=== PATIENT | female | born 1945 | race Caucasian/White ===

== ENCOUNTER 2018-05-11 06:51 | Day surgery (SDC) | payer MEDICARE, OTHER ==
[2018-05-11] MEDS ORDERED: Cyanocobalamin (Vitamin B12) 1,000 MCG/ML SDV IM ONE (07:45)
[2018-05-11] MEDS ORDERED: Glycopyrrolate 0.2 MG/ML 2 ML SDV IVPUSH ONE (07:45)
[2018-05-11] MEDS ORDERED: Lactated Ringers 1,000 ML IV SCH (07:45)
[2018-05-11] MEDS ORDERED: fentaNYL 100 MCG/2 ML SDV ONE (07:52)
[2018-05-11] MEDS ORDERED: Propofol 200 MG/20 ML SDV ONE (07:52)
[2018-05-11] MEDS ORDERED: MVI, Adult with Vitamin K 10 ML, Thiamine 200 MG, Chromium/Copper/Mang/Selen/Zn 1 ML in... IV ONE ×4 (08:45)
--- NOTE | 2018-05-12 11:31 | OR ---
DATE OF PROCEDURE: 05/11/2018 PREOPERATIVE DIAGNOSIS: History of recent reperforated marginal ulcer. POSTOPERATIVE DIAGNOSIS: Healed marginal ulcer. OPERATIVE PROCEDURE: Upper gastrointestinal endoscopy with biopsy of gastric pouch for CLOtest. ANESTHESIA: IV sedation. INDICATION FOR PROCEDURE: This is a 72-year-old status post Violetta-en-Y gastric bypass. She sustained a perforated marginal ulcer on 04/13/2018, which was treated in [place]. She is here for a call to establish whether or not that ulcer has now healed. She has been on Protonix 40 mg a day. The potential risks including bleeding and perforation were discussed, and the patient wishes to proceed. DETAILS OF PROCEDURE: The patient was taken to the operating room and placed in the left lateral decubitus position. IV sedation was administered, after which the upper GI endoscope was passed orally through the length of the esophagus into the gastric pouch and from there through the gastrojejunostomy and roughly 20 cm into the Violetta limb. Overall, the findings were entirely normal. With the ulcer not being well healed, there was no stricturing or other problems noted at the area of the gastrojejunostomy, and the ulcer again was entirely well healed, and all the mucosa was soft and pliable and not inflamed appearing throughout the examination. At that point, biopsies were obtained from the gastric pouch to check for the H. pylori status. Minimal bleeding from the biopsy site was seen and the procedure then concluded. Recommendation will be to continue with Protonix for 3 months postoperatively, i.e., until around the mid July. At that time, probably as a maintenance medication, she should likely be on something like Zantac or Pepcid long-term as she has obviously demonstrated propensity to develop these marginal ulcers, and should be following up with Fatuma De Leon after she gets back from her trip in [place] later this summer. Prashant Angel MD /[id number]
== END 2018-05-11 10:40 | disposition home or self-care (01) ==
LOC: JP.SDS 06:51
PROVIDERS: ATTEND Surgery
DX: Z09 Encounter for follow-up examination after completed treatment for conditions other than malignant neoplasm (principal); Z87.11 Personal history of peptic ulcer disease; Z98.84 Bariatric surgery status
CPT/HCPCS: 36415; 43239; 85027; 87081; J2704; J3010; J3411; J3420; J7120; J3490